=== PATIENT | female | born 1980 | race Caucasian/White ===

== ENCOUNTER 2017-01-23 05:33 | Day surgery (SDC) | payer MEDICARE, MEDICAID ==
[~2017-01-23 05:33] MED LIST: AMOXICILLIN875 MG PO; CELEXA20 M2 PO; CELEXA20 MG; CLARITIN10 M8 PO; MONTELUKAST PO; NORCO 5/325 TAB1 TAB PO; OMEPRAZOLE PO; PLAQUENIL200 M1 PO; PREDNISONE10 M1 PO; TURMERIC500 M2 PO; TYLENOL ARTHRI650 M1 PO; VITAMIN D32000 UNI3 PO
[2017-01-23 06:30] LABS: HCT-HEMATOCRIT 37.7 % (34.0-49.0); HGB-HEMOGLOBIN 12.5 gm/dl (12.0-15.5); MCV (MEAN CELL VOLUME) 83.8 fl (82.0-96.0); RED CELL DISTRIBUTION WIDTH 12.9 % (12.4-16.4)
[2017-01-24] MEDS ORDERED: HYDROCODON-ACE1 EA16 PO (12:57)
[2017-01-24] MEDS ORDERED: ZOFRAN4 M2 PO (12:58)
[2017-05-12] MEDS ORDERED: IBUPROFEN200 M2 PO (15:34)
[2017-05-18] MEDS ORDERED: IBUPROFEN800 M1 PO (09:11)
[2017-05-18] MEDS ORDERED: COLACE100 M1 PO (09:12)
== END 2017-01-23 12:30 ==
LOC: WSU 05:33 → SHSB 05:36 → ORW 07:32 → PACU 09:13 → SHSB 10:10
PROVIDERS: Obstetrics & Gynecology
PROC: 0UB98ZZ Excision of Uterus, Via Natural or Artificial Opening Endoscopic (ICD-10-PCS; principal; 2017-01-23)
DX: D25.9 Leiomyoma of uterus, unspecified (principal); I08.0 Rheumatic disorders of both mitral and aortic valves; F32.9 Major depressive disorder, single episode, unspecified; J45.909 Unspecified asthma, uncomplicated; Z98.890 Other specified postprocedural states; Z88.2 Allergy status to sulfonamides; Z91.040 Latex allergy status; Z79.899 Other long term (current) drug therapy
CPT/HCPCS: C1782; J3010

== ENCOUNTER 2017-01-24 11:59 | Emergency (ER) | payer MEDICARE, MEDICAID ==
[2017-01-24 12:31] LABS: BASO % 0.3 % (0-2); EOS % 1.2 % (0-7); EOSINOPHIL ABSOLUTE COUNT 0.1 tho/cmm (0.0-0.7); HCT-HEMATOCRIT 38.7 % (34.0-49.0); HGB-HEMOGLOBIN 12.9 gm/dl (12.0-15.5); IMMATURE GRANULOCYTES ABSOLUTE 0.01 tho/cmm (0-0.03); IMMATURE GRANULOCYTES PERCENT 0.2 % (0-0.3); LYMPH % 33.3 % (20-45); MCH (MEAN CORPUSCULAR HGB) 28.2 pg (28.0-32.0); MCHC MEAN CORPUSCULAR HGB CONC 33.3 % (32.0-36.0); MCV (MEAN CELL VOLUME) 84.5 fl (82.0-96.0); MEAN PLATELET VOLUME 10.7 cmc (9.4-12.4); MONO % 8.4 % (0-12); MONOCYTE ABSOLUTE COUNT 0.5 tho/cmm (0.0-1.2); NEUTROPHIL ABSOLUTE COUNT 3.3 tho/cmm (1.6-8.0); NEUTROPHIL-AUTOMATED 3.3 tho/cmm (1.6-8.0); NEUTROPHILS % 56.6 % (40-80); PLATELET COUNT 223 tho/cmm (150-450); RED BLOOD COUNT 4.58 mil/cmm (4.00-5.20); RED CELL DISTRIBUTION WIDTH 13.3 % (12.4-16.4); WHITE BLOOD COUNT 5.9 tho/cmm (4.0-10.0)
[2017-01-24 12:44] LABS: PREGNANCY-SERUM NEGATIVE (NEGATIVE)
[2017-01-24 12:46] LABS: ALB/GLOB RATIO 1.2 (0.8-2.0); ALKALINE PHOSPHATASE 63 U/L (33-138); ALT/SGPT 18 U/L (12-78); ANION GAP 12 mmol/L (0-20); AST/SGOT 14 U/L (10-40); BILIRUBIN,TOTAL 0.2 mg/dl (0-1.5); BLOOD UREA NITROGEN 8 mg/dl (6-24); CALCIUM 8.5 mg/dl (8.5-10.5); CARBON DIOXIDE-VENOUS 23 mmol/L (22-32); CHLORIDE 110 mmol/l (96-110); GLUCOSE 81 mg/dL (70-110); POTASSIUM 3.8 mmol/L (3.7-5.1); SODIUM 141 mmol/L (135-145); eGFR VALUE FOR BLACK >90 mL/Min
[2017-01-24 12:49] LABS: C-REACTIVE PROTEIN <0.3 mg/dl (0-0.9)
[2017-01-24] MEDS ORDERED: HYDROCODON-ACE1 EA16 PO (12:57)
[2017-01-24] MEDS ORDERED: ZOFRAN4 M2 PO (12:58)
[2017-01-24 14:12] LABS: URINE BILIRUBIN NEGATIVE (NEG); URINE BLOOD NEGATIVE (NEG); URINE GLUCOSE (UA) NEGATIVE (NEG); URINE KETONE NEGATIVE (NEG); URINE LEUKOCYTE ESTERASE NEGATIVE (NEG); URINE NITRITE NEGATIVE (NEG); URINE PH 6.5 (5.0-8.0); URINE PROTEIN NEGATIVE (NEG); URINE SPECIFIC GRAVITY 1.015 (1.003-1.030)
[2017-01-24 14:16] LABS: URINE APPEARANCE CLEAR; URINE COLOR YELLOW
[2017-05-12] MEDS ORDERED: IBUPROFEN200 M2 PO (15:34)
[2017-05-18] MEDS ORDERED: IBUPROFEN800 M1 PO (09:11)
[2017-05-18] MEDS ORDERED: COLACE100 M1 PO (09:12)
== END 2017-01-24 15:00 ==
LOC: EDMED 11:59
PROVIDERS: Emergency Medicine
DX: R47.89 Other speech disturbances (principal); T40.2X5A Adverse effect of other opioids, initial encounter; G89.28 Other chronic postprocedural pain; Z88.2 Allergy status to sulfonamides
CPT/HCPCS: J7030; P9612